=== PATIENT | male | born 1940 | race Caucasian/White ===

== ENCOUNTER 2016-12-14 08:03 | Outpatient (CLI) | payer MEDICARE ==
--- NOTE | 2016-12-16 11:34 | PET ---
NUCLEAR MEDICINE FDG PET CT: (Positron Emission Tomography) DATE: 12/14/16 HISTORY: 76-year-old male with right lower lobe primary lung cancer, squamous cell carcinoma. COMPARISON: None. TECHNIQUE: IV injection F-18 Fluorodeoxyglucose (FDG) dose: 11.9 mCi PET and attenuation-correction CT performed from skull base to proximal thighs. FINDINGS: SUV (standard uptake value) numbers given are maximum SUV's: There is a large, approximately 8 x 5 x 9 cm solid pulmonary mass in the right lower lobe, broadly a butting the posterolateral pleural surface, with very high FDG uptake. The maximum area is found at the superior anterior portion of the mass, where the SUV is 11.9. There are no FDG avid mediastinal or hilar lymph nodes. However, there are a few mildly to moderately enlarged non FDG avid mediastina l lymph nodes. For example, there is an approximately 1.5 x 1.5 cm right anterior paratracheal lymph node with SUV of 1.5. Superior and posterior to that, there is a round 1.5 x 1.5 cm lymph node in t he right tracheoesophageal groove, posterior to the right side of the trachea at the T2-3 level, wit h SUV of only 2.0. There is a 2.5 x 0.8 cm right axillary lymph node with SUV of 1.9. It has prominent fatty hilum and is probably benign. No suspicious FDG localization in the neck, abdomen, or pelvis. IMPRESSION: 1. Very large right lower lobe hypermetabolic primary lung cancer, corresponding to the squamous ce ll carcinoma mentioned in the history. 2. No convincing evidence of metastatic disease: no FDG avid suspicious lesions elsewhere. 3. There are at two right mediastinal lymph nodes that would be suspicious in size and shape, but a re not FDG avid. Consider follow-up CT of the chest in 3-6 months. NABEEL Rowland POS: VIANCA
== END 2016-12-14 08:04 | disposition home or self-care (01) ==
LOC: PET 08:03
PROVIDERS: ATTEND Internal Medicine Pulmonary Disease
DX: C34.90 Malignant neoplasm of unspecified part of unspecified bronchus or lung (principal)
CPT/HCPCS: 78815; A9552